=== PATIENT | male | born 1965 | race Caucasian/White ===

== ENCOUNTER 2016-09-25 09:34 | Day surgery (SDC) | payer BC ==
[2016-08-30 08:59] VITALS: BMI 27.6
--- NOTE | 2016-09-25 09:13 | HP ---
Satellite [facility] - Chief Complaint Chief Complaint: left wrist mass - Past Medical History Allergies/Adverse Reactions: Allergies Allergy/AdvReac Type Severity Reaction Status Date / Time No Known Allergies Allergy Verified 02/11/11 00:36 - Current Medications Current Medications: Home Medications Medication Instructions Recorded Alfuzosin HCl [Uroxatral] 10 mg PO DAILY 08/30/16 Rosuvastatin Calcium [Crestor] 5 mg PO DAILY 08/30/16 Hydrocodone/Acetaminophen [[place] 1 each PO Q6H PRN #20 tablet MDD 4 09/25/16 5-325 Tablet] Satellite Physical Exam - Physical Examination General Appearance: Well Nourished, Well Developed, Alert & Oriented x3 ENT: Clear Lung: Normal air movement Heart: Regular rate & rhythm Extremities: Other (left wrist- + ganglion cyst, nvi) Neurological: Intact, Alert, Oriented Satellite Impression/Plan - Impression/Plan Impression: left wrist ganglion cyst Operative Procedure: left wrist ganglion cyst excision Date to be Performed: 09/25/16
[2016-09-25] MEDS ORDERED: oxyCODONE HCL 5 MG TABLET PO PRN (12:14)
[2016-09-25] MEDS ORDERED: ONDANSETRON 4 MG/2 ML VIAL IVPUSH PRN (12:14)
[2016-09-25] MEDS ORDERED: LACTATED RINGERS SOLUTION 1,000 ML IV SCH (12:15)
[2016-09-25] MEDS ORDERED: BUPIVACAINE HCL/PF 0.5% (5MG/ML) 10 ML VIAL ONE (12:17)
[2016-09-25] MEDS ORDERED: LIDOCAINE HCL 1%, 10 MG/ML (20ML VIAL) ONE (12:17)
[2016-09-25] MEDS ORDERED: MIDAZOLAM HCL 2 MG/2 ML SINGLE DOSE VIAL ONE ×2 (12:30→12:41)
[2016-09-25] MEDS ORDERED: PROPOFOL 20 ML ONE (12:39)
[2016-09-25] MEDS ORDERED: ceFAZolin SODIUM 1 GM VIAL IVPB ONE (12:48)
[2016-09-25] MEDS ORDERED: LIDOCAINE HCL 1%, 10 MG/ML (50 mL VIAL) IJ ONE ×2 (12:51)
[2016-09-25] MEDS ORDERED: BUPIVACAINE HCL/PF 0.5% (5MG/ML) 10 ML VIAL IJ ONE ×2 (12:51)
--- NOTE | 2016-09-25 13:22 | OP ---
Operative Note - Note: Operative Date: 09/25/16 Pre-Operative Diagnosis: mass left wrist Operation: excision mass left wrist Post-Operative Diagnosis: Same as Pre-op Surgeon: Manjit Bhatia Anesthesiologist/NURSING SPECIALIST: Latonya Fallon Anesthesia: Local, MAC Specimens Removed: mass, left wrist Estimated Blood Loss (mls): 0 Drains, Volume Out (mls): 0 Blood Volume Replaced (mls): 0 Fluid Volume Replaced (mls): 500 Operative Report Dictated: Yes
[2016-09-25 14:34] VITALS: TEMP 97.7
[2016-09-25 15:53] VITALS: BP 135/84; PULSE 62
--- NOTE | 2016-09-26 10:04 | OP ---
DATE OF OPERATION: 09/25/2016 PREOPERATIVE DIAGNOSIS: Left wrist dorsal wrist mass. POSTOPERATIVE DIAGNOSIS: Left wrist dorsal wrist mass, likely ganglion cyst. PROCEDURE: Excision mass, left wrist. SURGEON: Manjit Chandler MD ENGINEER ASSISTANT: None. BOARD MIXER TENDER: Latonya Fallon CRNA ANESTHESIA: MAC anesthesia with local injection of 10 mL of 0.5% Marcaine 1% lidocaine mixed. DRAINS: None. COMPLICATIONS: None. SPECIMEN: Mass, left wrist. FLUID REPLACEMENT: 500 mL. BLOOD LOSS: None. BLOOD GIVEN: None. COMPLICATIONS: None. INDICATIONS: This patient is a 50-year-old male with a preoperative diagnosis of a mass that has grown in the dorsal aspect of his left wrist. After understanding the potential risks, complications, alternatives, and benefits of surgery versus nonsurgical treatment, the patient elected to undergo this procedure. Patient does understand that there is a risk of temporary or permanent paresthesias. There is risk of regrowth of the mass in this or other locations. DESCRIPTION OF PROCEDURE: The patient was brought to the operating room, peripheral IV was placed, IV sedation was given. One gram of IV Ancef was given, MAC anesthesia was induced. Left upper extremity was prepped and draped in sterile fashion. A transverse incision was marked out within Langers lines, and 10 mL of 0.5% Marcaine and 1% lidocaine mix was injected in and around the surgical incision. The left upper extremity was then elevated and exsanguinated with an Esmarch bandage. Tourniquet was inflated to 250 mmHg. The incision was made with a No. 15 scalpel blade. Subcutaneous hemostasis was achieved with the bipolar cautery. Dissection done with Littler scissors. There was some superficial excessive tenosynovitis that laid on top of the mass, and therefore this was removed and passed off as part of the specimen. The mass was deep. The tenosynovitis was partially deep, partially superficial to the extensor tendons. The entire mass was deep to the extensor tendons. It looked benign. It did not invade the surrounding areas. It was coming up from the dorsal wrist capsule, up and through the extensor tendons. Small self-retaining retractors were placed into the wound retracting the skin and the tendons for better exposure. This revealed a mass. We did a circumferential dissection using Littler scissors. It was shaped like a mushroom. I found its stalk and decapitated it at its base using a fresh No. 15 scalpel blade and I cauterized the base. The area was copiously irrigated and washed out. I did not see or feel any abnormal tissue. It was cauterized a bit more, washed out again, and the area soaked with 2 mL of 0.5% Marcaine and 1% lidocaine mix. Closure was done with 4-0 undyed Vicryl in the deep dermal layer, and final skin reapproximation was done with a running subcuticular 4-0 Biosyn stitch. The area was then washed and dried, covered with Steri-Strips, 4x4, fluffs between the fingers, Webril, and Coban. Total tourniquet time of about 20 minutes. There were no complications during the case. The patient tolerated the procedure quite well and was brought to the ambulatory recovery room in stable condition. MANJIT CHANDLER M.D. [id number]
--- NOTE | 2016-09-26 14:33 | PATH ---
Surgical Pathology Report Patient Name: RENETTA ALVARENGA [facility]. Rec. #: [id number] /Age/Gender: 1965 (Age: 50) / M Account: [id number] Location: [facility] Taken: 09/25/2016 Received: 09/25/2016 Reported: 09/26/2016 Physicians: Manjit hBatia M.D. Specimen(s) Received MASS LEFT WRIST Clinical History Ganglion left wrist Final Diagnosis SOFT TISSUE, LEFT WRIST MASS, EXCISION: BENIGN TENOSYNOVIAL FIBROCONNECTIVE TISSUE WITH CYSTIC SPACE WITHOUT DEFINED LINING AND MYXOID DEGENERATION CONSISTENT WITH GANGLION CYST. Electronically Signed Conor Bravo M.D. Gross Description Received in formalin labeled "mass left wrist" is a 2.8 x 2.4 x 0.4 cm aggregate of arambula-yellow, irregular soft tissue fragments. Tongue Lining Stitcher sections are submitted in one cassette. /09/25/201609/25/2016
== END 2016-09-25 15:55 | disposition home or self-care (01) ==
LOC: JASU-SURG 09:34
PROVIDERS: ATTEND Orthopaedic Surgery
PROC: 0LB60ZX Excision of Left Lower Arm and Wrist Tendon, Open Approach, Diagnostic (ICD-10-PCS; principal; 2016-09-25 11:30)
DX: D21.12 Benign neoplasm of connective and other soft tissue of left upper limb, including shoulder (principal)
CPT/HCPCS: 88304-TC; 94760

== ENCOUNTER 2019-11-23 02:14 | Emergency (ER) | payer BC, OTHER ==
--- OUTSIDE RECORDS SUMMARY | 2019-11-23 02:48 | XMS ---
:1965 Author Organization [facility] Care Team Providers Name Role Phone EMERGENCY SERVICE, X Unavailable Unavailable MECCA AKINS Unavailable Unavailable Re-disclosure Warning The records that you are about to access may contain information from federally- assisted alcohol or drug abuse programs. If such information is present, then the following federally mandated warning applies: This information has been disclosed to you from records protected by federal confidentiality rules (42 CFR part 2). The federal rules prohibit you from making any further disclosure of this information unless further disclosure is expressly permitted by the written consent of the person to whom it pertains or as otherwise permitted by 42 CFR part 2. A general authorization for the release of medical or other information is NOT sufficient for this purpose. The Federal rules restrict any use of the information to criminally investigate or prosecute any alcohol or drug abuse patient.The records that you are about to access may contain highly sensitive health information, the redisclosure of which is protected by Article 27-F of the [facility] Public Health law. If you continue you may haveaccess to information: Regarding HIV / AIDS; Provided by facilities licensed or operated by the [facility] Office of Mental Health; or Provided by the [facility] Office for People With Developmental Disabilities. If such information is present, then the following [facility] mandated warning applies: This information has been disclosed to you from confidential records which are protected by state law. State law prohibits you from making any further disclosure of this information without the specific written consent of the person to whom it pertains, or as otherwise permitted by law. Any unauthorized further disclosure in violation of state law may result in a fine or residential sentence or both. A general authorization for the release of medical or other information is NOT sufficient authorization for further disclosure. Encounters Encounter Providers Location Date Indications Data Source(s ) Emergency Attender: MABLE, 01/11/2019 PAIN [facility] STEVENYAttender: 01:19:00 PM [facility] EMERGENCY SERVICE, EST Corpor ation XAdmitter: MECCA AKINS PAIN Medications Medication Brand Start Product Dose Route Administrative Pharmacy St at Indications Reaction Description Data Name Date Form Instructions Instructions Source(s) 0.9% NaCl 0.9% 999 [facility] active 0.9% NaCl [facility] IV NaCl 2018 mL IV 1000 mL; r [facility] IV 01:59: IV rate: Health 33 PM 1000 mL/hr Care EST Corporatio n Medication administered onsite Insurance Providers Payer Policy type Policy ID Covered Covered Policy Plan Inf ormation name / Coverage green party ID green party's Unger type relationship to unger [facility] [id number] [employer] [id number] Problems, Conditions, and Diagnoses Code Display Name Description Problem Type Effective Data Sour ce(s) Dates Z86.39 Personal history of PERSONAL HISTORY Diagnosis 01/11/2019 [place] other endocrine, OF ENDO, 01:19:00 PM [facility] nutritional and NUTRITIONAL AND [facility] Care metabolic disease METABOLIC DISEASE Corporation Z87.39 Personal history of PERSONAL HISTORY Diagnosis 01/11/2019 [place] other diseases of OF DISEASES OF 01:19:00 PM [place] the musculoskeletal THE MS SYS AND EST C are system and [employer] connective tissue N40.0 Benign prostatic BENIGN PROSTATIC Diagnosis 01/11/2019 [facility] hyperplasia without HYPERPLASIA 01:19:00 PM [facility] [employer] lower urinary tract WITHOUT LOWER EST Ca re symptoms URINRY TRACT SYMP Corpora tion R10.9 Unspecified UNSPECIFIED Diagnosis 01/11/2019 [place] abdominal pain ABDOMINAL PAIN 01:19:00 PM [facility] Lulu R00.2 Palpitations PALPITATIONS Diagnosis 01/11/2019 [facility] r 01:19:00 PM [facility] Results ID Date Data Source [id number] 11/11/2019 08:16:00 AM EDT [facility] Name Value Range Interpretation Description Data Sup porting Code Source(s) Document(s ) SARS [facility] coronavirus 2 RNA This lab was ordered by [facility] [place] and reported by [facility]. Procedure Patient Treatment Plan of Care Planned Activity Planned Date Details Description Data Source (s) 0.9% NaCl [facility]
[2019-11-23 02:52] VITALS: BMI 25.0
--- NOTE | 2019-11-23 03:04 | PDOC ---
History of Present Illness - General Stated Complaint: PAIN Time Seen by Provider: 11/23/19 03:04 Past History - Medical History Allergies/Adverse Reactions: Allergies Allergy/AdvReac Type Severity Reaction Status Date / Time No Known Allergies Allergy Verified 02/11/11 00:36 Home Medications: Ambulatory Orders Alfuzosin HCl [Uroxatral] 10 mg PO DAILY 08/30/16 Rosuvastatin Calcium [Crestor] 5 mg PO DAILY 08/30/16 Hydrocodone/Acetaminophen [[place] 5-325 Tablet] 1 each PO Q6H PRN #20 tablet MDD 4 09/25/16 Anemia: No Asthma: No Cancer: No Cardiac Disorders: No CVA: No COPD: No CHF: No Dementia: No Diabetes: No GI Disorders: No Disorders: No HTN: Yes Hypercholesterolemia: Yes Liver Disease: No Seizures: No Thyroid Disease: No - Surgical History Appendectomy: Yes - Immunization History Immunization Up to Date: Yes - Psycho-Social/Smoking History Smoking Status: No Smoking History: Never smoked Have you smoked in the past 12 months: No Number of Cigarettes Smoked Daily: 0 Information on smoking cessation initiated: No - Substance Abuse Hx (Audit-C & DAST Scrn) How often the patient has a drink containing alcohol: Never Score: In Men: 4 or > Positive; In Women: 3 or > Positive: 0 Screen Result (Pos requires Nsg. Audit-10AR): Negative In the last yr the pt used illegal drug/Rx for NonMed reason: No Score: Yes response is considered Positive: 0 Screen Result (Positive result requires Nsg. DAST-10): Negative *Physical Exam - Vital Signs Last Vital Signs Temp Pulse Resp BP Pulse Ox 98.0 F 60 20 131/81 96 11/23/19 02:49 11/23/19 02:49 11/23/19 02:49 11/23/19 02:49 11/23/19 02:49 ED Treatment Course - LABORATORY CBC & Chemistry Diagram: 11/23/19 03:27 11/23/19 03:27 Medical Decision Making - Medical Decision Making 11/23/19 03:18 HPI: 54yo M hx BPH, HTN, s/p appendectomy (23yo), and recent Augmentin use 2wks ago for sinus infection presents from home c/o 1.5 weeks of intermittent soft/watery diarrhea (3-4x/day) and constipation, with intermittent stabbing RLQ nonra diating pain, and intermittent cramping diffuse abdominal pain with BMs. Also c/o 2 days of dark black tarry stools (2 episodes profuse diarrhea). Denies BRBPR, hemorrhoids, hx GIB, N/V, F/C, urinary sx, testicular sx, travel, odd foods, camping, hx similar sx, cough, CP, SOB, lightheadedness, syncope. CLP and endoscopy 1yr ago normal. RLQ TTP Rectal: no blood, soft light brown Ddx: C diff, enteritis, colitis, diverticulitis, IBD... -EKG -Labs incl c diff/stool -IVF -Ofirmev -Zofran -CTAP -Dispo: pending 11/23/19 05:16 Labs reviewed. Tbili 1.4, WBC 8 EKG reviewed: NSR, 60bpm, normal axis, normal intervals, no TWIs, no ST elevations or depressiosn CT reviewed: Cholelithiasis with gallbladder distention most likely associated with gallbladder dysmotility and chronic cholecystitis. If clinically indicated follow-up outpatient nuclear medicine hepatobiliary scan with a slow 10 minute cholecystokinin injection gallbladder ejection fraction calculation may be needed. Small hiatal hernia. Mild nonspecific wall thickening of the sigmoid colon most likely due to diverticulitis or infectious or inflammatory colitis. Pain improved s/p ofirmev. No further episodes of diarrhea - will try to give stool sample now. 11/23/19 07:02 []stool >antibiotics and d/c Discharge - Discharge Information Problems reviewed: Yes Clinical Impression/Diagnosis: Colitis Condition: Improved Disposition: HOME - Admission No - Follow up/Referral Referrals: Jimmy Chahal MD [Primary Care Provider] - - Patient Discharge Instructions Patient Printed Discharge Instructions: DI for Antibiotic -- associated Colitis -- C difficile, DI for Colitis Additional Instructions: You have been seen in the Emergency Department for your abdominal pain and diarrhea. Your CT scan shows inflammation of your colon. We have sent a prescri ption for antibiotics to your pharmacy - take as prescribed. Also make sure to stay hydrated. Your CT scan also showed a hernia and gallbladder abnormality. These are not emergent conditions but you will need further evaluation by a Child Psychometrist. Follow-up with your Child Psychometrist at your appointment as planned. If you experience pain, you can take Tylenol as directed on the medication bottle, but do not exceed 4g of Tylenol a day. Follow-up with your primary care doctor within 1 week[address] Show him the CT scan result below. Return to the Emergency Department immediately if you experience fever, vomiting, worsening pain, or any other new or worsening symptom. CT scan: -Cholelithiasis with gallbladder distention most likely associated with gallbladder dysmotility and chronic cholecystitis. If clinically indicated follow-up outpatient nuclear medicine hepatobiliary scan with a slow 10 minute cholecystokinin injection gallbladder ejection fraction calculation may be needed. -Small hiatal hernia. -Mild nonspecific wall thickening of the sigmoid colon most likely due to divert iculitis or infectious or inflammatory colitis. - Post Discharge Activity
[2019-11-23] MEDS ORDERED: SODIUM CHLORIDE 0.9% 500 ML INFUS.BAG IV ONE (03:21)
[2019-11-23] MEDS ORDERED: ACETAMINOPHEN 1000 MG/100 ML VIAL (NON FORMULARY) IVPB ONE (03:21)
[2019-11-23] MEDS ORDERED: ACETAMINOPHEN INJECTION 100 ML IVPB ONE (03:34)
--- NOTE | 2019-11-23 03:41 | PDOC ---
Attending Attestation - Resident Resident Name: RaviyamiletMag - ED Attending Attestation I have performed the following: I have examined & evaluated the patient, The case was reviewed & discussed with the resident, I agree w/resident's findings & plan, Exceptions are as noted - HPI HPI: 54 yo M with PMH of BPH, HTN, appendectomy in his 20s, recent course of augmentin for sinus infection presents with watery diarrhea that occurred for a few days, followed by constipation, associated with RLQ abdominal pain. Denies dysuria, hematuria, back pain, fever. - Physicial Exam PE: GENERAL: Awake, alert, and fully oriented. Appears uncomfortable, but nontoxic. HEAD: No signs of trauma EYES: PERRLA, EOMI, sclera anicteric, conjunctiva clear ENT: Auricles normal inspection, hearing grossly normal, nares patent, oropharynx clear without exudates. Moist mucosa NECK: Normal ROM, supple, no lymphadenopathy, JVD, or masses LUNGS: Breath sounds equal, clear to auscultation bilaterally. No wheezes, and no crackles HEART: Regular rate and rhythm, normal S1 and S2, no murmurs, rubs or gallops ABDOMEN: Soft, +RLQ tenderness with guarding, normoactive bowel sounds. No rebound. No masses EXTREMITIES: Normal range of motion, no edema. No clubbing or cyanosis. No cords, erythema, or tenderness NEUROLOGICAL: Cranial nerves II through XII grossly intact. Normal speech, normal gait. Motor and sensation intact SKIN: Warm, dry, normal turgor, no rashes or lesions noted. - Medical Decision Making Pt with recent abx use, now with watery diarrhea and RLQ tenderness. Will send labs, check urine, and check CT a/p to evaluate for poss colitis. Will also check for CDiff. Discharge - Discharge Information Problems reviewed: Yes Clinical Impression/Diagnosis: Colitis Condition: Improved Disposition: HOME - Additional Discharge Information Prescriptions: Sulfamethoxazole/Trimethoprim [Bactrim Ds -] 1 tab PO BID #14 tablet metroNIDAZOLE [Flagyl -] 500 mg PO TID #21 tablet - Follow up/Referral Referrals: Jimmy Chahal MD [Primary Care Provider] - - Patient Discharge Instructions Patient Printed Discharge Instructions: DI for Colitis Additional Instructions: You have been seen in the Emergency Department for your abdominal pain and diarrhea. Your CT scan shows inflammation of your colon. We have sent a prescription for antibiotics to your pharmacy - take as prescribed. Also make sure to stay hydrated. Your CT scan also showed a hernia and gallbladder abnormality. These are not emergent conditions but you will need further evaluation by a Business Management Intern. Follow-up with your Business Management Intern at your appointment as planned. If you experience pain, you can take Tylenol as directed on the medication bottle, but do not exceed 4g of Tylenol a day. Follow-up with your primary care doctor within 1 week[address] Show him the CT scan result below. Return to the Emergency Department immediately if you experience fever, vomiting, worsening pain, or any other new or worsening symptom. CT scan: -Cholelithiasis with gallbladder distention most likely associated with gall bladder dysmotility and chronic cholecystitis. If clinically indicated follow-up outpatient nuclear medicine hepatobiliary scan with a slow 10 minute cholecystokinin injection gallbladder ejection fraction calculation may be needed. -Small hiatal hernia. -Mild nonspecific wall thickening of the sigmoid colon most likely due to diverticulitis or infectious or inflammatory colitis. - Post Discharge Activity
[2019-11-23 03:53] LABS: BASO % 1.1 % (0-2.0); EOS % 2.2 % (0-4.5); HEMATOCRIT 42.4 % (35.4-49); HEMOGLOBIN 14.7 GM/dL (11.7-16.9); LYMPH % 39.1 % (8-40); MCHC 34.6 g/dl (32.0-35.9); MEAN CELL VOLUME 89.4 fl (80-96); MEAN PLT VOLUME 12.2 fl (7.5-11.1); MONO % 9.8 % (3.8-10.2); NEUT % 47.8 % (42.8-82.8); RBC 4.75 M/mm3 (4.00-5.60); RDW 13.8 % (11.9-15.9)
[2019-11-23 04:25] LABS: ALBUMIN 3.8 g/dl (3.4-5.0); ALK PHOS 73 U/L (45-117); ANION GAP 4 MMOL/L (8-16); BILIRUBIN,TOTAL 1.4 mg/dL (0.2-1); BLOOD UREA NITROGEN 19.3 mg/dL (7-18); CALCIUM 8.4 mg/dL (8.5-10.1); CHLORIDE 107 mmol/L (98-107); CO2 30 mmol/L (21-32); CREATININE 0.8 mg/dL (0.55-1.3); GLUCOSE,RANDOM 98 mg/dL (74-106); LIPASE 109 U/L (73-393); POTASSIUM 4.3 mmol/L (3.5-5.1); SGOT/AST 17 U/L (15-37); SGPT/ALT 39 U/L (13-61); SODIUM 140 mmol/L (136-145)
[2019-11-23 05:36] LABS: PLATELET COUNT 153 K/MM3 (134-434); PLATELET ESTIMATE ADEQUATE
[2019-11-23 06:00] VITALS: TEMP 98.3
--- NOTE | 2019-11-23 07:10 | PDOC ---
*Physical Exam - Vital Signs Last Vital Signs Temp Pulse Resp BP Pulse Ox 98.3 F 62 18 120/71 99 11/23/19 05:58 11/23/19 05:58 11/23/19 05:58 11/23/19 05:58 11/23/19 05:58 - Physical Exam General Appearance: Yes: Nourished, Appropriately Dressed. No: Apparent Distress Respiratory/Chest: positive: Lungs Clear, Normal Breath Sounds. negative: Chest Tender, Respiratory Distress, Accessory Muscle Use, Crackles, Rales, Stridor, Wh eezing Cardiovascular: positive: Regular Rhythm, Regular Rate. negative: Edema, JVD, Murmur Gastrointestinal/Abdominal: positive: Normal Bowel Sounds, Tender (RUQ), Flat, Soft, Tenderness. negative: Distended, Guarding, Rebound Musculoskeletal: positive: Normal Inspection. negative: CVA Tenderness Extremity: positive: Normal Inspection. negative: Tender, Pedal Edema, Swelling, Calf Tenderness Integumentary: positive: Normal Color, Dry, Warm. negative: Rash, Swelling Neurologic: positive: Fully Oriented, Alert, Normal Mood/Affect, Normal Response ED Treatment Course - LABORATORY CBC & Chemistry Diagram: 11/23/19 03:27 11/23/19 03:27 - ADDITIONAL ORDERS Additional order review: Laboratory Results 11/23/19 11/23/19 11/23/19 03:27 03:27 03:27 PTT (Actin FS) Sodium 140 Potassium 4.3 Chloride 107 Carbon Dioxide 30 Anion Gap 4 L BUN 19.3 H Creatinine 0.8 Est GFR (CKD-EPI)AfAm 119.04 Est GFR (CKD-EPI)NonAf 102.71 Random Glucose 98 Lactic Acid 0.8 Calcium 8.4 L Total Bilirubin 1.4 H AST 17 ALT 39 Alkaline Phosphatase 73 Creatine Kinase 67 Troponin I < 0.02 Total Protein 7.0 Albumin 3.8 Lipase 109 Stool Occult Blood Blood Type O POSITIVE Antibody Screen Negative 11/23/19 11/23/19 03:27 03:27 PTT (Actin FS) 31.7 Sodium Potassium Chloride Carbon Dioxide Anion Gap BUN Creatinine Est GFR (CKD-EPI)AfAm Est GFR (CKD-EPI)NonAf Random Glucose Lactic Acid Calcium Total Bilirubin AST ALT Alkaline Phosphatase Creatine Kinase Troponin I Total Protein Albumin Lipase Stool Occult Blood Negative Blood Type Antibody Screen 11/23/19 03:27 RBC 4.75 MCV 89.4 MCHC 34.6 RDW 13.8 MPV 12.2 H D Neutrophils % 47.8 Lymphocytes % 39.1 Monocytes % 9.8 Eosinophils % 2.2 Basophils % 1.1 - Medications Given in the ED: ED Medications Discontinued Medications Generic Name Dose Route Start Last Admin Trade Name Eboni PRN Reason Stop Dose Admin Acetaminophen 1,000 mg 11/23/19 03:21 11/23/19 03:44 Ofirmev Injection - IVPB 11/23/19 03:22 1,000 mg ONCE ONE Administration Sodium Chloride 1,000 ml 11/23/19 03:21 11/23/19 03:43 Normal Saline - IV 11/23/19 03:22 1,000 ml ONCE ONE Administration Medical Decision Making - Medical Decision Making 11/23/19 07:38 54yo M PMHx BPH, HTN PSHx appendectomy. Presenting due to abdominal pain. Patient states his abdominal pain is much better and feels it has improved since his time in the ED. DDx: cholelithiasis, gastritis, pancreatitis, IBD Labs: Na 140, K 4.3, Cr 0.8 Tbili 1.4, Trop <0.02, Lipase 109 CT: Evidence of colitis Occult: Negative Dispo: D/C Home 11/23/19 09:51 Discharge - Discharge Information Problems reviewed: Yes Clinical Impression/Diagnosis: Colitis Condition: Improved Disposition: HOME - Additional Discharge Information Prescriptions: Sulfamethoxazole/Trimethoprim [Bactrim Ds -] 1 tab PO BID #14 tablet metroNIDAZOLE [Flagyl -] 500 mg PO TID #21 tablet - Follow up/Referral Referrals: Jimmy Chahal MD [Primary Care Provider] - - Patient Discharge Instructions Patient Printed Discharge Instructions: DI for Colitis Additional Instructions: You have been seen in the Emergency Department for your abdominal pain and diarrhea. Your CT scan shows inflammation of your colon. We have sent a prescription for antibiotics to your pharmacy - take as prescribed. Also make sure to stay hydrated. Your CT scan also showed a hernia and gallbladder abnormality. These are not emergent conditions but you will need further evaluation by a Knife Glazer. Follow-up with your Knife Glazer at your appointment as planned. If you experience pain, you can take Tylenol as directed on the medication bottle, but do not exceed 4g of Tylenol a day. Follow-up with your primary care doctor within 1 week[address] him the CT scan result below. Return to the Emergency Department immediately if you experience fever, vomiting, worsening pain, or any other new or worsening symptom. CT scan: -Cholelithiasis with gallbladder distention most likely associated with gallbladder dysmotility and chronic cholecystitis. If clinically indicated follow-up outpatient nuclear medicine hepatobiliary scan with a slow 10 minute cholecystokinin injection gallbladder ejection fraction calculation may be needed. -Small hiatal hernia. -Mild nonspecific wall thickening of the sigmoid colon most likely due to diverticulitis or infectious or inflammatory colitis. - Post Discharge Activity
[2019-11-23 08:23] LABS: WHITE BLOOD COUNT 8.8 K/mm3 (4.0-10.0)
[2019-11-23 09:54] VITALS: BP 116/82; PULSE 59
--- NOTE | 2019-11-23 10:03 | EKG ---
Test Reason : Blood Pressure : / mmHG Vent. Rate : 060 BPM Atrial Rate : 060 BPM P-R Int : 158 ms QRS Dur : 098 ms QT Int : 422 ms P-R-T Axes : 052 076 054 degrees QTc Int : 422 ms NORMAL SINUS RHYTHM NORMAL ECG WHEN COMPARED WITH ECG OF 11-FEB-2011 01:11, VENT. RATE HAS DECREASED BY 46 BPM QT HAS SHORTENED Confirmed by MD Norm, Supa ([id number]) on 11/23/2019 10:03:04 AM Referred By: Confirmed By:Supa Zheng MD
== END 2019-11-23 09:59 | disposition home or self-care (01) ==
LOC: JER 02:14
PROC: 3E0333Z Introduction of Anti-inflammatory into Peripheral Vein, Percutaneous Approach (ICD-10-PCS; principal; 2019-11-23)
DX: K52.9 Noninfective gastroenteritis and colitis, unspecified (principal)
CPT/HCPCS: 36415; 74177-TC; 80053; 82272; 82550; 83605; 83690; 84484; 85025; 85730; 86850; 86900; 86901; 87205; 87324; 87449; 93005; 93010; 99285-25; J0131